=== PATIENT | female | born 1980 | race Caucasian/White ===

== ENCOUNTER → 2020-05-14 15:44 | Outpatient (CLI) | payer MEDICARE, SELFPAY ==
[2020-05-14 16:53] LABS: Free T4 (Free Thyroxine) 3.99 ng/dl (0.78-2.19)
[2020-05-14 16:55] LABS: Thyroid Stimulating Hormone < 0.02 uIU/mL (0.465-4.68)
[2020-05-16 13:40] LABS: Thyroid Peroxidase Antibodies 11 IU/mL (0-34)
[2020-05-16 15:27] LABS: Triiodothyronine (T3) Free 13.1 pg/mL (2.0-4.4)
== END ==
PROVIDERS: Visit Provider Otolaryngology
DX: E06.3 Autoimmune thyroiditis (principal)
CPT/HCPCS: 36415; 84439; 84443; 84481; 86376

== ENCOUNTER → 2020-06-14 11:44 | Outpatient (CLI) | payer MEDICAID, SELFPAY ==
[2020-06-14 13:14] LABS: Free T4 (Free Thyroxine) 1.25 ng/dl (0.78-2.19)
[2020-06-14 13:46] LABS: Thyroid Stimulating Hormone < 0.02 uIU/mL (0.465-4.68)
[2020-06-15 14:16] LABS: Triiodothyronine (T3) Free 4.7 pg/mL (2.0-4.4)
== END ==
PROVIDERS: Visit Provider Otolaryngology
DX: E05.00 Thyrotoxicosis with diffuse goiter without thyrotoxic crisis or storm (principal)
CPT/HCPCS: 36415; 84439; 84443; 84481

== ENCOUNTER → 2020-06-30 11:56 | Outpatient (CLI) | payer MEDICAID, SELFPAY ==
[2020-06-30 13:05] LABS: Free T4 (Free Thyroxine) 0.46 ng/dl (0.78-2.19)
[2020-06-30 13:20] LABS: Thyroid Stimulating Hormone < 0.02 uIU/mL (0.465-4.68)
== END ==
PROVIDERS: Visit Provider Otolaryngology
DX: E05.00 Thyrotoxicosis with diffuse goiter without thyrotoxic crisis or storm (principal); E05.90 Thyrotoxicosis, unspecified without thyrotoxic crisis or storm
CPT/HCPCS: 36415; 84439; 84443